=== PATIENT | male | born 1985 | race Caucasian/White ===

== ENCOUNTER 2024-03-12 12:32 | Emergency (ER) | payer BC, SELFPAY ==
[2024-03-12 12:33] VITALS: BP 169/104
[2024-03-12 12:57] VITALS: BMI 40.9
[2024-03-12 13:29] VITALS: BP 158/95
[2024-03-12 13:50] LABS: % Basophils 0.4 % (0-2); % Eosinophils 0.5 % (0-6); % Immature Granulocytes 0.2 % (0-0.5); % Lymphocytes 18.9 % (20.5-51.1); % Monocytes 6.5 % (1.7-9.3); % Neutrophils 73.5 % (42.2-75.2); Absolute Lymphocytes 1.6 10^3/uL (1.2-3.4); Absolute Monocytes 0.5 10^3/uL (0.1-0.6); Absolute Neutrophils 6.2 10^3/uL (1.4-6.5); Hematocrit 45.9 % (39.0-52.0); Hemoglobin 16.5 g/dL (13.0-18.0); Mean Corp Hgb Conc. 35.9 g/dL (33.0-37.0); Mean Corpuscular Hgb 29.4 pg (27.0-31.0); Mean Corpuscular Volume 81.7 fL (80.0-94.0); Mean Platelet Volume 10.1 fL (7.4-10.4); Nucleated Red Blood Cells % 0 % (-); Platelet Count 226 10^3/uL (130-400); Red Blood Cell Count 5.62 10^6/uL (4.70-6.10); Red Cell Dist. Width 12.2 % (11.5-14.5); White Blood Cell Count 8.4 10^3/uL (4.8-10.8)
[2024-03-12 14:00] VITALS: BP 125/82
[2024-03-12 14:07] LABS: Blood Urea Nitrogen 14 mg/dl (9-20); Calcium 9.8 mg/dl (8.4-10.2); Carbon Dioxide 23 mmol/L (22-30); Chloride 102 mmol/L (98-107); Estimated Creatinine Clearance > 125 ml/min; Glucose 101 mg/dl (70-99); Sodium 133 mmol/L (135-145); eGFR > 60.00
--- NOTE | 2024-03-12 14:11 | ED.GENMED ---
History of Present Illness
General
Chief Complaint: Abdominal Symptoms
Source: patient
Exam Limitations: none
Time Seen by Provider: 03/12/24 13:25
Travel History
Have you had any contact with someone who has COVID-19?: No
Do you have any symptoms of coronavirus? Fever > 100 degrees, chills, cough, shortness of breath, sore throat, loss of taste or smell, muscle aches, or headache?: No
History of Present Illness
History of Present Illness:
38-year-old male otherwise healthy presents complaining of intermittent lower abdominal pain and diarrhea over the past month. He notes more recently he has had increased frequency of loose stool and he feels a different type of sensation
throughout his body after he has a bowel movement. He states he feels shaky nauseous and sweaty and lightheaded. No measurable fever. The pain in his abdomen is minimal. No urinary symptoms. No prior abdominal surgical history. No blood in the
stool. No family history of inflammatory bowel disease. No known sick contacts. No recent antibiotic use
Phy Exam
Physical Exam
Physical Exam:
General: Well-appearing male no acute respiratory distress
HEENT: Normocephalic atraumatic
Heart: Regular rate and rhythm no murmurs
Lungs: Clear no wheeze or rales
Abdomen soft mildly tender to the lower abdomen no guarding or rebound normal bowel sounds nondistended
Extremities: No cyanosis
Skin: Warm no rash
Course
Orders/Labs/Results
Orders:
Orders
03/12/24 13:41
CT Abd/pelvis W Iv Cont Urgent
Comment:
Reason For Exam: lower abdominal pain
03/12/24 13:44
Basic Metabolic Panel Urgent
Complete Blood Count/With Diff Urgent
03/12/24 14:37
Urinalysis Reflex To Culture Urgent
Date Specimen was Collected: 03/12/24
Time Specimen was Collected: 14:16
Giardia/Cryptosporidium Ag Urgent
YESIKA Source: ST
Specimen Description:
Date Specimen was Collected: 03/12/24
Time Specimen was Collected: 14:35
STOOL [C difficile Antigen & Toxins] Urgent
YESIKA Source: Feces/Stool
Specimen Description:
Date Specimen was Collected: 03/12/24
Time Specimen was Collected: 14:35
Stool Culture Stat
YESIKA Source: Feces/Stool
Specimen Description:
Date Specimen was Collected: 03/12/24
Time Specimen was Collected: 14:35
03/12/24 14:57
Add On- LAB Urgent
Tests Added?: stool ova and parasites
Abnormal Lab Results
03/12/24 03/12/24
13:44 14:37
Lymphocytes % 18.9 L %
(20.5-51.1)
Sodium 133 L mmol/L
(135-145)
Glucose 101 H mg/dl
(70-99)
Urine Ketones 1+ A
(Negative)
03/12/24 13:44
03/12/24 13:44
Vital Signs
Initial and Last Documented VS:
Initial Vital Signs
Temp Pulse Resp BP Pulse Ox
99.9 F 92 18 169/104 98
03/12/24 12:33 03/12/24 12:33 03/12/24 12:33 03/12/24 12:33 03/12/24 12:33
Last Documented Vital Signs
Temp Pulse Resp BP Pulse Ox
99.9 F 93 19 125/82 96
03/12/24 12:33 03/12/24 18:00 03/12/24 18:00 03/12/24 14:00 03/12/24 18:00
MDM/Problems Addressed
Differential Diagnosis Includes:
Lower abdominal pain with diarrhea. Question possible enteritis versus colitis versus diverticulitis versus ureteral bowel syndrome. Check labs. Check urine. Check stool cultures and CT
*Critical Care Note
Total Time (30-74mins, 75-104mins- exclusive of procedures): Not Applicable
Update Note
Update Note:
CT of abdomen negative for acute finding. Labs reviewed without significant finding. C. difficile negative Giardia negative. Patient has intermittent diarrhea and lower abdominal pain. No acute finding on exam today labs within normal limits.
Recommend brat diet with plenty of fluids and GI follow-up. Stable for discharge. Admission not indicated
ED Attending Note
-
Portions of this chart may have been created with voice recognition software.� Occasional wrong word or��sound alike� substitutions may have occurred due to the inherent limitations of voice recognition software.
Discharge Plan
Departure
Patient Disposition: Home (Routine Discharge)
Date of Disposition: 03/12/24
Time of Disposition: 18:19
Patient with high blood pressure during this ER visit?: No
Discharge Problem:
Diarrhea
Instructions: Abdominal Pain
Referrals:
Birgit Serrano DO [Family Provider] -
Kel Nguyen MD [Active] -
Activity Restrictions/Additional Instructions:
Continue drinking plenty of fluids. Continue with bland diet. Follow-up with GI. Return if needed. You should receive a call if your stool cultures are positive
Interventions
Interventions:
*Risk Screen - Suicide Last Done: 03/12/24 12:33
*General Assessment Last Done: 03/12/24 12:33
*Neglect/Abuse Screening Last Done: 03/12/24 12:33
ED- Fall Risk Assessment Last Done: 03/12/24 12:52
*ED COVID-19 Vaccine History Last Done: 03/12/24 12:52
XJ-Wpcrpp-Hvatwujepb Assessment Last Done: 03/12/24 12:52
Discharge Date and Time
Print Language: MAORI
[2024-03-12 15:00] LABS: Urine Albumin Negative (Neg - Trace); Urine Bilirubin Negative (Negative); Urine Character Clear (Clear); Urine Color Yellow; Urine Glucose Negative (Negative); Urine Ketone 1+ (Negative); Urine Leukocyte Negative (Negative); Urine Nitrite Negative (Negative); Urine Occult Blood Negative (Negative); Urine Urobilinogen Negative (Neg - 1+)
== END 2024-03-12 18:38 | disposition home or self-care (01) ==
LOC: EMR 12:32
PROVIDERS: Physician Assistant; EMERGENCY PHYSICIAN Emergency Medicine; FAMILY PHYSICIAN Family Medicine
DX: R19.7 Diarrhea, unspecified (principal)
CPT/HCPCS: 99285; 74177; 80048; 81003; 85025; 87045; 87046; 87324; 87328; 87329; 87427; 87449; Q9967

== ENCOUNTER → 2024-05-18 11:06 | Outpatient (REF) | payer BC, SELFPAY | LOC: HWRCS 11:06 | PROVIDERS: ATTENDING PHYSICIAN Family Medicine | DX: I10 Essential (primary) hypertension (principal) | CPT/HCPCS: 93306 ==